=== PATIENT | female | born 1930 | race Caucasian/White ===

== ENCOUNTER 2017-05-30 16:15 | Emergency (ER) | payer MEDICARE, BC ==
[~2017-05-30] VITALS: Ht 152.4 cm; Wt 45.1 kg
[~2017-05-30 16:15] MED LIST: ALPR.25 PO; BUDE.5I NEB; CALC12502 PO; DIPH1TAB PO; FLUT1INH INH; KENAAER TOPICAL; LEVO88TA30 PO; MULTTAB67 PO; PRAV20TA PO; PRED2.5T PO; PRIN10TA PO; Q-PA500T3 PO; ROBA750T PO; TRAM50 PO
[2017-05-30 16:24] VITALS: BP 163/85; PULSE 83; RESP 16; TEMP 97.4; O2SAT 97
[2017-05-30] MEDS ORDERED: CLINDAMYCIN INJ 600 MG in SODIUM CHLORIDE 0.9% INJ 100 ML IV ONE (16:45)
--- NOTE | 2017-05-30 16:50 | PD ---
HPI Chief Complaint: Skin Problem Time Seen by Provider: 16:37 Travel History International Travel<30 days: No Contact w/Intl Traveler<30days: No Traveled to known affect area: No History of Present Illness HPI 86-year-old female states 6 days ago she cut her leg on a branch while she was outside. She didn't realize how bad it was so she did not come in to get sutures. She states that her primary arranged wound care for her on Thursday but as it was starting to get red she went to an urgent care who sent her here today. She denies any fever or other trauma. She denies being on any specific blood thinners her being a diabetic. Quality is red. Location is left leg. PFSH Past Medical History Asthma: Yes Cancer: Yes (L BREAST ) Cardiovascular Problems: Yes (htn on meds) High Cholesterol: Yes COPD: Yes Diminished Hearing: No Respiratory: Yes (copd) Thyroid Disease: Yes Tetanus Vaccination: Unknown ?: Not Past Surgical History Other Surgery: Yes (LEFT BREAST LUMPECTOMY) Social History Alcohol Use: Yes (OCCASSIONAL) Tobacco Use: Yes (QUIT 2008) Substance Use: No Allergies-Medications (Allergen,Severity, Reaction): Coded Allergies: Sulfa (Sulfonamide Antibiotics) (Unverified Allergy, Severe, UNKNOWN, ) codeine (Unverified Allergy, Severe, Nausea/Vomiting, 06/01/17) procaine (Unverified Allergy, Severe, Nausea/Vomiting, 06/01/17) azathioprine (Unverified Adverse Reaction, Severe, vomiting, diarhea, ) Reported Meds & Prescriptions Reported Meds & Active Scripts Active Clindamycin (Clindamycin HCl) 300 Mg Cap 300 Mg PO TID 7 Days Reported Acetaminophen Extra Strength Liq (Acetaminophen) 500 Mg/15 Ml Soln 1,000 Mg PO Q4-6H PRN Pravastatin 20 Mg Tab 20 Mg PO DAILY Breo Ellipta Inh (Fluticasone/Vilanterol) 100-25 Mcg/Act Inh 1 Puff INH DAILY Use daily at the same time. Pulmicort Respules (Budesonide) 0.5 Mg/2 Ml Neb 0.5 Mg NEB Q12HR NEB Calcium Carbonate 1,250 Mg Tab 1,250 Mg PO BID 1,250 mg calcium carbonate (500 mg elemental calcium) Xanax (Alprazolam) 0.25 Mg Tab 0.25 Mg PO TID PRN Levoxyl (Levothyroxine Sodium) 88 Mcg Tab 88 Mcg PO DAILY Prinivil (Lisinopril) 10 Mg Tab 10 Mg PO DAILY Robaxin (Methocarbamol) 750 Mg Tab 750 Mg PO QID Multiple Vitamin 1 Tab 1 Tab PO DAILY Prednisone 2.5 Mg Tab 1 Mg PO BID Ultram (Tramadol HCl) 50 Mg Tab 25-50 Mg PO Q6H PRN Kenalog Topical (Triamcinolone Topical) 0.147 Mg/Gm Aer 1 [place] TOPICAL BID Review of Systems Except as stated in HPI: all other systems reviewed are Neg Physical Exam Narrative GENERAL: Well-nourished, well-developed patient. SKIN: Warm and dry. Left lower anterior leg there is a large partially healing V-shaped laceration noted without active bleeding, there is small amount of surrounding erythema to this area, there is clear yellow drainage noted from the area as the wound has not approximated appropriately, no induration or crepitus or obvious foreign body, no joint involvement HEAD: Normocephalic and atraumatic. EYES: No injection or drainage. ENT: No nasal drainage noted. NECK: Supple, trachea midline. CARDIOVASCULAR: Regular rate and rhythm RESPIRATORY: No increased effort. No accessory muscle use. GASTROINTESTINAL: Abdomen soft, non-tender, nondistended. EXTREMITIES: Mild edema near Laceration to left lower leg as noted above without joint pain, neurovascularly intact NEUROLOGICAL: Awake. moves all extremities. Normal speech. Data Data Last Documented VS Vital Signs Date Time Temp Pulse Resp B/P (MAP) Pulse Ox O2 Delivery O2 Flow Rate FiO2 05/30/17 19:50 66 18 156/82 (106) 99 05/30/17 16:24 97.4 Orders Orders Complete Blood Count With Diff (05/30/17 16:44) Wound Culture And Gram Stain (05/30/17 16:44) Ecg Monitoring (05/30/17 16:44) Iv Access Insert/Monitor (05/30/17 16:44) Tibia/Fibula (Ap/Lat) (05/30/17 ) Basic Metabolic Panel (Bmp) (05/30/17 16:44) Clindamycin Inj (Cleocin Inj) (05/30/17 16:45) Ed Discharge Order (05/30/17 18:55) Wound Care (05/30/17 19:44) Labs Laboratory Tests Test 05/30/17 17:00 White Blood Count 8.6 TH/MM3 Red Blood Count 3.20 MIL/MM3 Hemoglobin 10.8 GM/DL Hematocrit 32.8 % Mean Corpuscular Volume 102.5 FL Mean Corpuscular Hemoglobin 33.6 PG Mean Corpuscular Hemoglobin Concent 32.8 % Red Cell Distribution Width 18.7 % Platelet Count 248 TH/MM3 Mean Platelet Volume 7.1 FL Neutrophils (%) (Auto) 73.8 % Lymphocytes (%) (Auto) 13.4 % Monocytes (%) (Auto) 8.9 % Eosinophils (%) (Auto) 2.0 % Basophils (%) (Auto) 1.9 % Neutrophils # (Auto) 6.3 TH/MM3 Lymphocytes # (Auto) 1.1 TH/MM3 Monocytes # (Auto) 0.8 TH/MM3 Eosinophils # (Auto) 0.2 TH/MM3 Basophils # (Auto) 0.2 TH/MM3 CBC Comment DIFF FINAL Differential Comment Blood Urea Nitrogen 30 MG/DL Creatinine 1.10 MG/DL Random Glucose 89 MG/DL Calcium Level 9.0 MG/DL Sodium Level 137 MEQ/L Potassium Level 4.9 MEQ/L Chloride Level 106 MEQ/L Carbon Dioxide Level 24.3 MEQ/L Anion Gap 7 MEQ/L Estimat Glomerular Filtration Rate 47 ML/MIN [facility] Medical Decision Making Medical Screen Exam Complete: Yes Emergency Medical Condition: Yes Medical Record Reviewed: Yes (past history confirmed) Interpretation(s) CBC & BMP Diagram 05/30/17 17:00 Calcium Level 9.0 Last 24 hours Impressions Tibia/Fibula X-Ray 05/30/17 0000 Signed Impressions: Service Date/Time: Thursday, May 30, 2017 18:34 - CONCLUSION: 1. Soft tissue defect over the lateral lower leg projecting over the distal third of the fibula. Subjacent osseous structures are radiographically intact. 2. 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 Guilherme Burciaga MD Differential Diagnosis Cellulitis, foreign body, laceration Narrative Course Will check blood work and tib-fib x-ray and dose with clindamycin and reevaluate Blood work without emergent findings.Patient denies any new complaints, redness has not increased wall patient has been here, all questions answered. Patient knows that follow up is incumbent on them and to return to the emergency room immediately if new or worsening symptoms develop. Patient given strict return precautions, vitals reviewed and are normal, agrees to further workup as an outpatient. Diagnosis Primary Impression: Cellulitis of leg Qualified Codes: L03.116 - Cellulitis of left lower limb Additional Impression: Laceration of leg not thigh, left Qualified Codes: S81.812A - Laceration without foreign body, left lower leg, initial encounter Patient Instructions: General Instructions Additional Instructions: return as needed with any emergent concerns such as fever, increasing redness or other acute findings, follow with primary thursday Med/Other Pt SpecificInfo: Prescription(s) given Scripts Clindamycin (Clindamycin) 300 Mg Cap 300 MG PO TID for Infection for 7 Days, CAP 0 Refills Prov: An Roth MD 05/30/17 Disposition: 01 DISCHARGE HOME Condition: Stable An Roth MD May 30, 2017 16:50
[2017-05-30 17:05] LABS: AUTOMATED NEUTROPHIL # 6.3 TH/MM3 (1.8-7.7); BASOPHIL # 0.2 TH/MM3 (0-0.2); BASOPHIL % 1.9 % (0.0-2.0); EOSINOPHIL # 0.2 TH/MM3 (0-0.4); HEMATOCRIT 32.8 % (35.0-46.0); LYMPH % 13.4 % (9.0-44.0); LYMPHOCYTE # 1.1 TH/MM3 (1.0-4.8); MEAN CELL VOLUME 102.5 FL (80.0-100.0); MEAN CORPUSCULAR HEMOGLOBIN 33.6 PG (27.0-34.0); MEAN CORPUSCULAR HGB CONC 32.8 % (32.0-36.0); MONO % 8.9 % (0.0-8.0); NEUT % 73.8 % (16.0-70.0); PLATELET COUNT 248 TH/MM3 (150-450); RED CELL DISTRIBUTION WIDTH 18.7 % (11.6-17.2); WHITE BLOOD COUNT 8.6 TH/MM3 (4.0-11.0)
[2017-05-30 17:08] LABS: HEMO FLAGS DIFF FINAL
[2017-05-30] MEDS ORDERED: PRAV20TA2 PO (17:12)
[2017-05-30 17:33] LABS: POTASSIUM 4.9 MEQ/L (3.5-5.1)
[2017-05-30 17:36] LABS: BICARBONATE 24.3 MEQ/L (21.0-32.0)
[2017-05-30] MEDS ORDERED: CLIN300C5 PO (18:38)
--- NOTE | 2017-05-30 18:50 | RADRPT ---
EXAM DATE/TIME: 05/30/2017 18:34 [facility] COMPARISON: No previous studies available for comparison. INDICATIONS : Non healing laceration left lower leg from a branch MEDICAL HISTORY : Chronic obstructive pulmonary disease. SURGICAL HISTORY : None. ENCOUNTER: Initial ACUITY: 1 week PAIN SCORE: 6/10 LOCATION: Left low leg FINDINGS: Two view examination of the left tibia demonstrates no evidence of fracture or dislocation. Bony min eralization is normal. Soft tissue defect is seen laterally over the distal fibular diaphysis. Degene rative osteoarthritic changes at the knee joint. CONCLUSION: 1. Soft tissue defect over the lateral lower leg projecting over the distal third of the fibula. Subj acent osseous structures are radiographically intact. 2. 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 Guilherme Burciaga MD on May 30, 2017 at 18:47 Board Certified Radiologist. This report was verified electronically.
[2017-05-30] MEDS ORDERED: ACET500L PO (19:46)
[2017-05-30 19:50] VITALS: BP 156/82
== END 2017-05-30 19:53 | disposition home or self-care (01) ==
LOC: PHED 16:15
DX: L03.116 Cellulitis of left lower limb (principal); S81.812A Laceration without foreign body, left lower leg, initial encounter; B95.61 Methicillin susceptible Staphylococcus aureus infection as the cause of diseases classified elsewhere; E07.9 Disorder of thyroid, unspecified; E78.00 Pure hypercholesterolemia, unspecified; Z87.09 Personal history of other diseases of the respiratory system; Z86.79 Personal history of other diseases of the circulatory system; Z85.3 Personal history of malignant neoplasm of breast; W45.8XXA Other foreign body or object entering through skin, initial encounter
CPT/HCPCS: 73590; 80048; 85025; 86403; 87070; 87186; 87205; 96365

== ENCOUNTER 2017-09-10 15:45 | Emergency (ER) | payer MEDICARE, BC ==
[~2017-09-10] VITALS: Ht 152.4 cm; Wt 46.6 kg
[~2017-09-10 15:45] MED LIST changes: +ACET500L PO; -DIPH1TAB PO; -PRAV20TA PO; +PRAV20TA2 PO; -Q-PA500T3 PO
[2017-09-10 15:54] VITALS: BP 157/73; PULSE 83; RESP 16; TEMP 98.1; O2SAT 97
[2017-09-10] MEDS ORDERED: FLUT1INH7 INH (16:14)
[2017-09-10] MEDS ORDERED: PLAQ200T PO (16:14)
[2017-09-10] MEDS ORDERED: VENTAER INH (16:14)
--- NOTE | 2017-09-10 17:12 | PD ---
HPI Chief Complaint: Fall Time Seen by Provider: 16:19 Travel History International Travel<30 days: No Contact w/Intl Traveler<30days: No Traveled to known affect area: No History of Present Illness HPI This is a 87-year-old female here for evaluation of facial pain. Patient had a mechanical trip and fall after she tripped on uneven concrete falling to the ground hitting her face on the concrete. The fall was witnessed. She denies loss of consciousness. She is not anticoagulated. She reports she has nasal bone pain, right fifth digit pain, and mild generalized headache. She denies visual changes, dizziness, chest pain, shortness of breath, abdominal pain, paresthesia or weakness of the extremities. Symptom severity is moderate. No aggravating or alleviating factors PFSH Past Medical History Asthma: Yes Cancer: Yes (L BREAST ) Cardiovascular Problems: Yes (htn on meds) High Cholesterol: Yes COPD: Yes Diminished Hearing: No Respiratory: Yes (copd) Thyroid Disease: Yes Tetanus Vaccination: Unknown Past Surgical History Other Surgery: Yes (LEFT BREAST LUMPECTOMY) Social History Alcohol Use: Yes (OCCASSIONAL) Tobacco Use: Yes (QUIT 2008) Substance Use: No Allergies-Medications (Allergen,Severity, Reaction): Coded Allergies: Sulfa (Sulfonamide Antibiotics) (Verified Allergy, Severe, UNKNOWN, ) codeine (Verified Allergy, Severe, Nausea/Vomiting, 09/10/17) procaine (Verified Allergy, Severe, Nausea/Vomiting, 09/10/17) azathioprine (Verified Adverse Reaction, Severe, vomiting, diarhea, ) Reported Meds & Prescriptions Reported Meds & Active Scripts Active Ultram (Tramadol HCl) 50 Mg Tab 50 Mg PO Q6H PRN Augmentin (Amoxicillin-Clavulanate) 875-125 Mg Tab 1 Tab PO BID Reported Ventolin Hfa 18 GM Inh (Albuterol Sulfate) 90 Mcg/Act Aer 2 Puff INH Q4H PRN Breo Ellipta Inh (Fluticasone/Vilanterol) 200-25 Mcg/Act Inh 1 Puff INH DAILY Use daily at the same time. Plaquenil (Hydroxychloroquine Sulfate) 200 Mg Tab 200 Mg PO BID Take with food Acetaminophen Extra Strength Liq (Acetaminophen) 500 Mg/15 Ml Soln 1,000 Mg PO Q4-6H PRN Pravastatin 20 Mg Tab 20 Mg PO HS Pulmicort Respules (Budesonide) 0.5 Mg/2 Ml Neb 0.5 Mg NEB Q12HR NEB Calcium Carbonate 1,250 Mg Tab 1,250 Mg PO BID 1,250 mg calcium carbonate (500 mg elemental calcium) Xanax (Alprazolam) 0.25 Mg Tab 0.25 Mg PO TID PRN Levoxyl (Levothyroxine Sodium) 88 Mcg Tab 88 Mcg PO DAILY Prinivil (Lisinopril) 10 Mg Tab 10 Mg PO DAILY Robaxin (Methocarbamol) 750 Mg Tab 750 Mg PO QID Multiple Vitamin 1 Tab 1 Tab PO DAILY Prednisone 2.5 Mg Tab 1 Mg PO DAILY Ultram (Tramadol HCl) 50 Mg Tab 25-50 Mg PO Q6H PRN Kenalog Topical (Triamcinolone Topical) 0.147 Mg/Gm Aer 1 [place] TOPICAL BID Review of Systems Except as stated in HPI: all other systems reviewed are Neg General / Constitutional: No: Fever Eyes: No: Visual changes HENT: Positive: Headaches Cardiovascular: No: Chest Pain or Discomfort Respiratory: No: Shortness of Breath Gastrointestinal: No: Abdominal Pain Genitourinary: No: Dysuria Musculoskeletal: Positive: Pain (facial pain, right fifth digit pain) Skin: No Rash Neurologic: No: Weakness Physical Exam Narrative GENERAL: Alert and well-appearing 87 old female. SKIN: Warm and dry.1.5 CM irregular shaped laceration to the bridge of the nose. HEAD: Normocephalic. Atraumatic EYES: No injection or drainage. Pupils equal, round, reactive to light. EOMs intact. Ear/nose/throat: Small laceration to the bridge of the nose. Mild swelling. Mild tenderness to the bridge of the nose. No obvious deformity. No septal hematoma. No bleeding or drainage from the nose NECK: Supple, trachea midline. No cervical midline tenderness. She can freely move the neck from left to right CARDIOVASCULAR: Regular rate and rhythm. No chest wall tenderness RESPIRATORY: Breath sounds equal bilaterally. No accessory muscle use. Even and equal chest rise. GASTROINTESTINAL: Abdomen soft, non-tender, nondistended. MUSCULOSKELETAL: No cyanosis, or edema. Right hand: Tenderness of the IP joint of the right fifth digit. No deformity. Patient is able to flex and extend the digit. Normal sensation. Brisk cap refill. BACK: Nontender without obvious deformity. No CVA tenderness. NEUROLOGICAL: Awake and alert. Cranial nerves II through XII intact. Motor and sensory grossly within normal limits. Five out of 5 muscle strength in all muscle groups. Equal hand grasp. Normal speech. Data Data Last Documented VS Vital Signs Date Time Temp Pulse Resp B/P (MAP) Pulse Ox O2 Delivery O2 Flow Rate FiO2 09/10/17 16:06 16 09/10/17 15:54 98.1 83 157/73 (101) [address] Brain W/O Iv Contrast(Rout) (09/10/17 16:36) Ct Cerv Spine W/O Contrast (09/10/17 16:36) Ct Facial Bones W/O Iv Cont (09/10/17 16:36) Hand, Complete ([id number]) (09/10/17 ) Spine, Cervical Fl/Ext Only (09/10/17 ) MDM Medical Decision Making Medical Screen Exam Complete: Yes Emergency Medical Condition: Yes Interpretation(s) CT of the facial bones: Multiple nasal bone fractures CT of the brain: No acute abnormality Right hand x-ray: Possible ulnar styloid fracture. Patient is nontender at this location. CT of cervical spine: 1. No fracture seen. 2. There is malalignment of the vertebral bodies of the cervical spine with significant anterolisthesis at C5-6 and mild anterolisthesis at C4-5 and partial fusion at C3-4. There is associated hypertrophic changes in the posterior elements of the mid lower cervical spine. Anterolisthesis is probably related to the advanced degenerative changes, but given the history of recent trauma, may consider performing flexion and extension views to evaluate for instability. Cervical spine flexion-extension x-ray: CONCLUSION: 1. Stable 7 mm anterolisthesis of C5 on C6. 2. 4 mm anterolisthesis of C4 on C5 reduces to less than 2 mm during extension, consistent with some degree of instability at this level. Differential Diagnosis Facial bone fracture, ICH, cervical spine fracture, finger fracture, contusion Narrative Course This is a 87-year-old female who had a mechanical trip and fall from a standing position onto the concrete sustaining a nasal bone injury and fracture. CT of the brain and neck were obtained given her age and trauma to the face. She has no midline spine cervical spine tenderness or complaints of neck pain. She has a normal neurologic exam. She has history of chronic kyphosis. CT scan of cervical spine found significant anterolisthesis at C5-6 this is probably related to the advanced degenerative changes, but given the history of recent trauma, flexion and extension views to evaluate for instability was recommended. X-ray subsequently found 4 mm anterolisthesis of C4 on C5 reduces to less than 2 mm during extension, consistent with some degree of instability at this level. This was discussed with patient. She is refusing admission or further testing at this time stating "this is not new, my neck has always been like this". She is denying any neck pain at this time. She has normal strength and sensation of the upper extremities. Her granddaughter is present for this discussion. The patient is requesting to be discharged home and will follow-up with neurosurgeon on outpatient basis. The risk of permanent disability, paralysis, and possible was discussed. Patient verbalizes understanding and still requests discharge. She agrees to wear the [place] collar at all times and call tomorrow to schedule a follow-up appointment with neurosurgery. Case was discussed with the my attending physician Dr. Hurd who recommends reaching out to the on-call neurosurgeon to discuss the case. I spoke with Dr. Hartley assistant corporation counsel neurosurgeon regarding patient's imaging. He recommends the patient remain in spinal immobilization and either be admitted to the hospital for neurosurgery consult and evaluation or follow up on an outpatient basis if patient is unwilling to stay in the hospital. Given the patient's significant kyphosis, normal neurologic exam, and absence of back pain I suspect that this is chronic in nature and not related to the fall. Procedures Procedure Narrative LACERATION LOCATION: Nasal bridge LENGTH: 7MM NUMBER OF STITCHES/BART: 3 REPAIR: The area of the laceration was prepped with Betadine and sterilely draped. The laceration was infiltrated with 1% lidocaine. The wound was copiously irrigated and explored without evidence of foreign body, tendon injury or neurovascular injury. The wound was closed using 6-0 Ethilon. This was a SINGLE layer repair. A sterile dressing was applied. The patient was advised to keep the dressing clean and dry. Patient tolerated the procedure well. Diagnosis Primary Impression: Nasal bone fracture Qualified Codes: S02.2XXA - Fracture of nasal bones, initial encounter for closed fracture Additional Impressions: Neck injury Qualified Codes: S19.9XXA - Unspecified injury of neck, initial encounter Finger sprain Qualified Codes: S63.619A - Unspecified sprain of unspecified finger, initial encounter Referrals: Tobin Medina DDS, Federico Carlos MD Ear / Nose / Throat Specialist Neurosurgeon Oral Maxillofacial Surgeon Additional Instructions: You must wear the cervical collar at all times. No physical activity or heavy lifting. Call to make a follow-up appointment with neurosurgeon of your choice or Dr. Hartley. Call to make a follow-up appointment with a maxillofacial surgeon of your choice or DR medina Return to the emergency department if he developed new or worsening symptoms Scripts Tramadol (Ultram) 50 Mg Tab 50 MG PO Q6H Y for PAIN, #12 TAB 0 Refills Prov: Traci Mcdonnell 09/10/17 Amoxicillin-Clavulanate (Augmentin) 875-125 Mg Tab 1 TAB PO BID for Infection, #20 TAB 0 Refills Prov: Traci Mcdonnell 09/10/17 Disposition: 01 DISCHARGE HOME Condition: Stable Traci Mcdonnell Sep 10, 2017 17:12
--- NOTE | 2017-09-10 17:14 | RADRPT ---
EXAM DATE/TIME: 09/10/2017 16:52 [facility] COMPARISON: No previous studies available for comparison. INDICATIONS : Patient tripped and fell, smashed right hand, 5th digit. MEDICAL HISTORY : Chronic obstructive pulmonary disease. SURGICAL HISTORY : None. ENCOUNTER: Initial ACUITY: 1 day PAIN SCORE: 6/10 LOCATION: Right hand FINDINGS: Three-view examination demonstrates diffuse osteopenia. A ring is present on the 4th digit which obs cures portions of the proximal phalanx. There is an abnormal appearance to the ulnar styloid with a lucency through the base of the styloid suggesting an acute fracture. 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 There is deformity of the shaft of the 5th metacarpal bone without evidence of acute f racture suggesting old bony injury. Advanced osteoarthritic change in the 1st CMC articulation and s ome mild arthritic changes in the distal and proximal carpal row. There is rotary subluxation of the lunate and widening of the scapholunate distance. CONCLUSION: 1. Possible acute fracture of the ulnar styloid. 2. Rotary subluxation of the lunate. 3. Extensive arthropathy involving the DIP, PIP, and 1st CMC joints as described above. Don Whitaker MD on September 10, 2017 at 17:10 Board Certified Radiologist. This report was verified electronically.
--- NOTE | 2017-09-10 17:27 | RADRPT ---
EXAM DATE/TIME: 09/10/2017 17:07 [facility] COMPARISON: No previous studies available for comparison. INDICATIONS : Trauma. Fall. RADIATION DOSE: 55.73 CTDIvol (mGy) MEDICAL HISTORY : Chronic obstructive pulmonary disease. Carcinoma, breast. Hypertension. SURGICAL HISTORY : None. ENCOUNTER: Initial ACUITY: 1 day PAIN SCALE: 6/10 LOCATION: cranial TECHNIQUE: Multiple contiguous axial images were obtained of the head. Using automated exposure control and adj ustment of the mA and/or kV according to patient size, radiation dose was kept as low as reasonably a chievable to obtain optimal diagnostic quality images. DICOM format image data is available electro nically for review and comparison. FINDINGS: CEREBRUM: The ventricles, sulci, and basal systems are prominent, characteristic of mild central and cortical a trophy.. No evidence of midline shift, mass lesion, hemorrhage or acute infarction. No extra-axial fluid collections are seen. POSTERIOR FOSSA: The cerebellum and brainstem are intact. The 4th ventricle is midline. The cerebellopontine angle i s unremarkable. EXTRACRANIAL: The visualized portion of the orbits is intact. SKULL: The calvaria is intact. No evidence of skull fracture. CONCLUSION: 1. No acute findings in the brain. 2. Mild central and cortical atrophy. Don Whitaker MD on September 10, 2017 at 17:24 Board Certified Radiologist. This report was verified electronically.
--- NOTE | 2017-09-10 17:42 | RADRPT ---
EXAM DATE/TIME: 09/10/2017 17:07 [facility] COMPARISON: No previous studies available for comparison. INDICATIONS : Trauma. Fall. Laceration, bruising and pain across bridge of nose. RADIATION DOSE: 25.41 CTDIvol (mGy) MEDICAL HISTORY : Chronic obstructive pulmonary disease. Carcinoma, breast. Hypertension. SURGICAL HISTORY : None. ENCOUNTER: Initial ACUITY: 1 day PAIN SCORE: 8/10 LOCATION: cranial TECHNIQUE: Volumetric scanning of the facial bones was performed. Using automated exposure control and adjustme nt of the mA and/or kV according to patient size, radiation dose was kept as low as reasonably achiev able to obtain optimal diagnostic quality images. DICOM format image data is available electronicall y for review and comparison. FINDINGS: There are multiple fractures of the nasal bone involving both bilateral base and anterior tip. The t ip fragments appear to be displaced slightly towards the left. The maxillary spine appears grossly i ntact. There is nasal septal deviation towards the right. There is mucosal thickening in the right maxillary sinus and along the central superior aspect of muc osal thickening, there is moderate increased density or calcification suggesting inspissated secretio ns. No maxillary fracture seen. Infraorbital rim is intact bilaterally. The zygomatic arches, pter ygoid plates, and mandible are intact. The retroconal structures in both orbits are intact. CONCLUSION: 1. Multiple nasal bone fractures including both tip and base. 2. Opacity within the right maxillary sinus suggests chronic sinus disease with inspissated secretion s. No maxillary sinus fracture seen. Don Whitaker MD on September 10, 2017 at 17:37 Board Certified Radiologist. This report was verified electronically.
--- NOTE | 2017-09-10 17:48 | RADRPT ---
EXAM DATE/TIME: 09/10/2017 17:07 [facility] COMPARISON: No previous studies available for comparison. INDICATIONS : Trauma. Fall. RADIATION DOSE: 25.00 CTDIvol (mGy) MEDICAL HISTORY : Chronic obstructive pulmonary disease. Carcinoma, breast. Hypertension. SURGICAL HISTORY : None. ENCOUNTER: Initial ACUITY: 1 day PAIN SCALE: 4/10 LOCATION: neck TECHNIQUE: Volumetric scanning of the cervical spine was performed. Multiplanar reconstructions in the sagittal, coronal and oblique axial planes were performed. Using automated exposure control and adjustment o f the mA and/or kV according to patient size, radiation dose was kept as low as reasonably achievable to obtain optimal diagnostic quality images. DICOM format image data is available electronically f or review and comparison. FINDINGS: There is diffuse osteopenia. There is partial fusion of the posterior vertebral bodies at C3-4. The re is mild anterolisthesis of C4 with respect to C5 and significant anterolisthesis of C5 respect to C6, measuring 5 mm. Severe discogenic degenerative changes are present at T1-2 and T2-3. Mild anter ior paravertebral ossifications present C5-C7. There is fusion of the posterior elements bilaterally at C3-4 old stopped advanced degenerative changes are seen in the facet joints C5-C7 bilaterally. A tlantoaxial articulation is intact with synovial calcifications both anterior and posterior to the C1 -2 joint.. C2-C3: No fracture seen. Moderate severity right-sided bony neural foraminal stenosis.. C3-C4: No fracture seen. The neural foramina are patent. C4-C5: No fracture seen. Moderate right-sided bony neural foraminal stenosis. C5-C6: Level of the anterolisthesis. There is bilateral neural foraminal stenosis. Advanced hypertrophic c hanges in the facet joints bilaterally. C6-C7: No fracture seen. The neural foramina are patent. C7-T1: No fracture seen. The neural foramina are patent. CONCLUSION: 1. No fracture seen. 2. 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 There is associated hypertro phic changes in the posterior elements of the mid lower cervical spine. Anterolisthesis is probably related to the advanced degenerative changes, but given the history of recent trauma, may consider pe rforming flexion and extension views to evaluate for instability. Don Whitaker MD on September 10, 2017 at 17:40 Board Certified Radiologist. This report was verified electronically.
--- NOTE | 2017-09-10 18:37 | RADRPT ---
EXAM DATE/TIME: 09/10/2017 18:19 [facility] COMPARISON: No previous studies available for comparison. INDICATIONS : Neck pain after fall. MEDICAL HISTORY : Chronic obstructive pulmonary disease. Carcinoma, breast. Hypertension. SURGICAL HISTORY : None. ENCOUNTER: Initial ACUITY: 1 day PAIN SCORE: 3/10 LOCATION: c-spine FINDINGS: Flexion and extension views of the cervical spine were obtained. There is stable 7 mm anterolisthesis of C5 on C6 there is less prominent approximately 4 mm anterolisthesis of C4 on C5 which reduces to less than 2 mm during extension. Visualized vertebral body heights are intact with advanced degenerat mague spondylosis of the cervical spine. No significant prevertebral soft tissue swelling. CONCLUSION: 1. Stable 7 mm anterolisthesis of C5 on C6. 2. 4 mm anterolisthesis of C4 on C5 reduces to less than 2 mm during extension, consistent with some degree of instability at this level. Stone Dee MD on September 10, 2017 at 18:32 Board Certified Radiologist. This report was verified electronically.
[2017-09-10] MEDS ORDERED: AUGM875T3 PO (19:45)
[2017-09-10] MEDS ORDERED: TRAM50 PO (19:48)
== END 2017-09-10 20:02 | disposition home or self-care (01) ==
LOC: PHEFT 15:45
DX: S02.2XXA Fracture of nasal bones, initial encounter for closed fracture (principal); S19.9XXA Unspecified injury of neck, initial encounter; S63.616A Unspecified sprain of right little finger, initial encounter; R51 Headache; J45.909 Unspecified asthma, uncomplicated; I10 Essential (primary) hypertension; E78.00 Pure hypercholesterolemia, unspecified; J44.9 Chronic obstructive pulmonary disease, unspecified; W01.0XXA Fall on same level from slipping, tripping and stumbling without subsequent striking against object, initial encounter
CPT/HCPCS: 12011; 70450; 70486; 72040; 72125; 73130